=== PATIENT | male | born 1990 | race Caucasian/White ===

== ENCOUNTER 2023-08-02 17:51 | Emergency (ER) | payer OTHER, SELFPAY ==
--- OUTSIDE RECORDS SUMMARY | 2023-08-02 17:56 | XMS REPORT | Continuity of Care Document ---
:1990 Author Organization [facility] t Address [address] [facility] [address] [place] [id number] Care Team Providers Name Role Phone PCP, PATIENT DOES NOT HAVE A Primary Care Physician Unavaila GABRIELLA Collins Attending Clinician Unavailable Gabriella Farooq Attending Clinician GABRIELLA PRINCE Admitting Clinician Unavailable Problems This patient has no known problems. Allergies, Adverse Reactions, Alerts Allergy Allergy Status Severity Reaction(s) Onset Inactive Treating Comm ents Source Name Type Date Date Clinician NO KNOWN Drug Active Univers ALLERGIE Class ity of [facility] Social History Social Habit Start Date Stop Date Quantity Comments Source Sexual orientation [facility] Gender identity [facility] Sex Assigned At [birth year] [facility] 00:00:00 00:00:00 [facility] Smoking Status Start Date Stop Date Source Tobacco smoking consumption [facility] Medications Ordered Filled Start Stop Current Ordering Indication Dosage Frequency Signature Comments Components Source Medication Medication Date Date Medication? Clinician (SIG) Name Name ibuprofen 2022- No 600mg 600 mg, Uni vers (IBU) 04-12 Oral, ity of tablet 600 17:45: 18:03 ONCE, 1 [place] as mg 00 :00 dose, On Medical Mon Branch 04/12/23 at 1245, TREMAINE cephALEXin 2022- No [id number] 500mg Take 1 Univers 500 mg 04-12 [id number] capsule by ity of capsule 00:00: 04:59 mouth in [place] 00 :00 the Medical morning Branch and 1 capsule in the evening. Do all this for 7 days. Vital Signs Vital Name Observation Time Observation Value Comments Source Systolic blood 2023-04-12 17:26:00 148 mm[Hg] Univer sity of pressure [facility] Diastolic blood 2023-04-12 17:26:00 98 mm[Hg] Unive rsity of pressure [facility] Heart rate 2023-04-12 17:26:00 98 /min [facility] Body temperature 2023-04-12 17:26:00 36.72 Lauren [facility] Respiratory rate 2023-04-12 17:26:00 18 /min [facility] Body height 2023-04-12 17:26:00 172.7 cm [facility] Body weight 2023-04-12 17:26:00 77.111 kg [facility] BMI 2023-04-12 17:26:00 25.85 kg/m2 [facility] Oxygen saturation in 2023-04-12 17:26:00 100 /min [facility] blood by [facility] Pulse oximetry Branch Procedures Procedure Date / Time Performed Performing Clinician Sourc e XR SACRUM AND COCCYX 2023-04-12 18:28:48 Gabriella Prince [facility] ASSIGNMENT OF BENEFITS 2023-04-12 17:50:31 Doctor Unassigned, No [facility] NOTICE OF PRIVACY 2023-04-12 17:50:02 Doctor Unassigned, No [facility] Encounters Start End Encounter Admission Attending Care Care Encounter Source Date/Time Date/Time Type Type Clinicians Facility Department ID 2023-04-12 2023-04-12 Emergency X SURESH TXMADELINE ERT [id number] Univers 12:27:00 15:06:00 GABRIELLA rodarte [facility] 2023-04-12 2023-04-12 Emergency Suresh TXMADELINE [id number] Univers 12:27:00 15:06:00 Gabriella CAMERON [id number] itbonnie [facility] [id number] [facility] [id number] [facility] 084 Branch Results This patient has no known results.
[2023-08-02] MEDS ORDERED: ONDANSETRON 4 MG/2 ML VIAL ONE (18:35)
[2023-08-02] MEDS ORDERED: NA CHLORIDE 0.9% 1,000 ML ONE (18:35)
[2023-08-02 18:43] LABS: Absolute Lymphocytes (CBC) 2.3 K/uL (0.7-4.9); Hematocrit 47.4 % (39.6-49.0); Lymphocytes % 25.5 % (15.3-44.8); MCV 94.3 fL (80-100); MPV 7.8 fL (7.6-11.3); Platelets 353 thou/uL (152-406); RBC Red Blood Cell Count 5.02 M/uL (4.33-5.43)
[2023-08-02 18:56] LABS: Bilirubin Total 0.7 mg/dL (0.2-1.0); Potassium 4.1 mEq/L (3.5-5.1); Protein, Total 7.7 g/dL (6.4-8.2)
--- NOTE | 2023-08-02 19:31 | ER ---
Nurse's Notes [facility] Name: Mj Hough Age: 32 yrs Sex: Male : 1990 Arrival Date: 08/02/2023 Time: 17:51 Bed 2 Private MD: Diagnosis: Nausea with vomiting, unspecified;Diarrhea, unspecified Presentation: 08/02 18:04 Chief complaint: Patient states: vomiting, diarrhea, nausea X 2 days. Coronavirus iw screen: Client presents with at least one sign or symptom that may indicate coronavirus-19. Ebola Screen: Patient negative for fever greater than or equal to 101.5 degrees Fahrenheit, and additional compatible Ebola Virus Disease symptoms Patient denies exposure to infectious person. Patient denies travel to an Ebola-affected area in the 21 days before illness onset. No symptoms or risks identified at this time. Initial Sepsis Screen: Does the patient meet any 2 criteria? No. Patient's initial sepsis screen is negative. Does the patient have a suspected source of infection? No. Patient's initial sepsis screen is negative. Risk Assessment: Do you want to hurt yourself or someone else? Patient reports no desire to harm self or others. Onset of symptoms was July 31, 2023. 18:04 Method Of Arrival: Ambulatory iw 18:04 Acuity: TEODORO 4 iw 18:06 Acuity: TEODORO 3 iw Historical: - Allergies: 18:05 No Known Allergies; iw - Home Meds: 18:05 None [Active]; iw - PMHx: 18:05 None; iw - PSHx: 18:05 None; iw - Immunization history:: Client reports receiving the 2nd dose of the Covid vaccine. - Social history:: Smoking status: Patient denies any tobacco usage or history of. Screenin:28 [facility] ED Fall Risk Assessment (Adult) History of falling in the last 3 months, km8 including since admission No falls in past 3 months (0 pts) Confusion or Disorientation No (0 pts) Intoxicated or Sedated No (0 pts) Impaired Gait No (0 pts) Mobility Assist Device Used No (0 pt) Altered Elimination No (0 pt) Score/Fall Risk Level 0 - 2 = Low Risk Oriented to surroundings, Maintained a safe environment, Educated pt \T\ family on fall prevention, incl call for assistance when getting out of bed, Assessed \T\ reinforced patient's understanding of fall precautions. Abuse screen: Denies threats or abuse. Denies injuries from another. Nutritional screening: No deficits noted. Tuberculosis screening: No symptoms or risk factors identified. Assessment: 18:25 General: Appears in no apparent distress. Behavior is calm, cooperative, appropriate ll1 for age. Pain: Denies pain. GI: Reports cramping, diarrhea, nausea, vomiting. 19:28 General: Appears in no apparent distress. comfortable, Behavior is calm, cooperative, km8 appropriate for age. Pain: Denies pain. Neuro: Mejia Agitation-Sedation Scale (RASS): 0 - Alert and Calm Level of Consciousness is awake, alert, obeys commands, Oriented to person, place, time, situation. Cardiovascular: Denies chest pain, shortness of breath, Capillary refill < 3 seconds Patient's skin is warm and dry. Respiratory: Airway is patent Respiratory effort is even, unlabored, Respiratory pattern is regular, symmetrical. GI: Abdomen is flat, non-distended, no nausea at this time. : No signs and/or symptoms were reported regarding the genitourinary system. EENT: No signs and/or symptoms were reported regarding the EENT system. Derm: Skin is intact, is healthy with good turgor, Skin is dry, Skin is normal, Skin temperature is warm. Musculoskeletal: No signs and/or symptoms reported regarding the musculoskeletal system. Range of motion: intact in all extremities. Vital Signs: 18:05 BP 152 / 91; Pulse 95; Resp 16; Temp 98.9; Pulse Ox 98% on R/A; Weight 72.57 kg; Height iw 5 ft. 8 in. ; 19:28 BP 130 / 82; Pulse 93; Resp 16; Pulse Ox 99% on R/A; km8 20:05 BP 114 / 99; Pulse 90; Resp 18; Pulse Ox 100% ; jj7 18:05 Body Mass Index 24.33 (72.57 kg, 172.72 cm) iw [place] Coma Score: 19:28 Eye Response: spontaneous(4). Motor Response: obeys commands(6). Verbal Response: km8 oriented(5). Total: 15. ED Course: 17:55 Patient arrived in ED. mg5 17:56 [facility]C [facility] kb 17:56 Jovani Machuca MD is Attending Physician. kb 18:05 Triage completed. iw 18:05 Arm band placed on. iw 18:06 Noa Black, RN is Primary Nurse. iw 18:20 SARS-COV-2 RT PCR Sent. mb9 18:20 Flu Sent. mb9 18:27 Inserted saline lock: 20 gauge in right antecubital area, using aseptic technique. ls5 Blood collected. 19:28 Frances Rico, RN is Primary Nurse. km8 19:28 Patient has correct armband on for positive identification. Bed in low position. Call km8 light in reach. Side rails up X 1. Client placed on continuous cardiac and pulse oximetry monitoring. NIBP monitoring applied. Door closed. PO fluids given. 19:28 Patient maintains SpO2 saturation greater than 95% on room air. km8 20:05 Provided Education on: DISCHARGE INSTRUCTIONS. jj7 20:05 No provider procedures requiring assistance completed. IV discontinued, intact, jj7 bleeding controlled, No redness/swelling at site. Pressure dressing applied. Administered Medications: 18:25 Drug: NS 0.9% IV 1000 ml IV at 1 bolus Per protocol; 1000 mL bolus Route: IV; Rate: 1 ll1 bolus; Site: right antecubital; 20:04 Follow up: IV Status: Completed infusion jj7 18:25 Drug: Ondansetron IVP 4 mg IVP once; over 2 minutes Route: IVP; Site: right antecubital;ll1 19:30 Follow up: Response: No adverse reaction; Nausea is decreased km8 Medication: 20:05 VIS not applicable for this client. jj7 Outcome: 19:31 Discharge ordered by . kb 20:05 Discharged to home ambulatory, jj7 20:05 Condition: improved 20:05 Discharge instructions given to patient, Instructed on discharge instructions, medication usage, Demonstrated understanding of instructions, medications, Prescriptions given X 1, 20:08 Patient left the ED. jj7 Signatures: Courtney Hernandez, VERIFICATION REP-C VERIFICATION REP-Ckb Noa Black, RN REBEKAH iw Li Morejon RN RN ll1 Darin Murphy RN RN jj7 Debbie Amaral RN RN mb9 Quentin Torres ls5 Leela Benton mg5 Frances Rico, REBEKAH RN km8
--- NOTE | 2023-08-02 19:31 | EDPHYS ---
Physician Documentation [facility] Name: Mj Hough Age: 32 yrs Sex: Male : 1990 Arrival Date: 08/02/2023 Time: 17:51 Bed 2 Private MD: ED Physician Jovani Machuca HPI: 08/02 17:59 This 32 yrs old Male presents to ER via Unassigned with complaints of kb Nausea/Vomiting/Diarrhea, Lost Taste/Smell. 17:59 Patient is a 32-year-old male with no medical history who presents for 2 days of kb nausea, vomiting, diarrhea. States he lost his taste and smell today. Denies cough, congestion, fever, abdominal pain.. Historical: - Allergies: 18:05 No Known Allergies; iw - Home Meds: 18:05 None [Active]; iw - PMHx: 18:05 None; iw - PSHx: 18:05 None; iw - Immunization history:: Client reports receiving the 2nd dose of the Covid vaccine. - Social history:: Smoking status: Patient denies any tobacco usage or history of. ROS: 18:00 Constitutional: Negative for fever, chills, and weight loss, kb 18:00 ENT: Positive for loss of taste and smell, 18:00 Abdomen/GI: Positive for nausea, vomiting, and diarrhea, Negative for abdominal pain, 18:00 All other systems are negative, Exam: 18:00 Constitutional: This is a well developed, well nourished patient who is awake, alert, kb and in no acute distress. Head/Face: Normocephalic, atraumatic. ENT: Moist Mucous membranes Cardiovascular: Regular rate Respiratory: Respirations even and unlabored. No increased work of breathing. Talking in full sentences Abdomen/GI: Soft, non-tender. No distention Skin: Warm, dry with normal turgor. Normal color. MS/ Extremity: Pulses equal, no cyanosis. Neurovascular intact. Full, normal range of motion. Neuro: Awake and alert, GCS 15, oriented to person, place, time, and situation. Moves all extremities. Normal gait. Vital Signs: 18:05 BP 152 / 91; Pulse 95; Resp 16; Temp 98.9; Pulse Ox 98% on R/A; Weight 72.57 kg; Height iw 5 ft. 8 in. ; 19:28 BP 130 / 82; Pulse 93; Resp 16; Pulse Ox 99% on R/A; km8 20:05 BP 114 / 99; Pulse 90; Resp 18; Pulse Ox 100% ; jj7 18:05 Body Mass Index 24.33 (72.57 kg, 172.72 cm) [place] Coma Score: 19:28 Eye Response: spontaneous(4). Motor Response: obeys commands(6). Verbal Response: km8 oriented(5). Total: 15. MDM: 17:56 Patient medically screened. kb 18:00 Differential diagnosis: Nonspecific abd pain, viral gastroenteritis, flu, covid. Data kb reviewed: vital signs, nurses notes. 19:30 Test considered but Not performed: CT: CT abd considered, but abd soft and nontender, kb labs wnl. Counseling: I had a detailed discussion with the patient and/or guardian regarding the historical points, exam findings, and any diagnostic results supporting the discharge/admit diagnosis, lab results, the need for outpatient follow up, a family practitioner, to return to the emergency department if symptoms worsen or persist or if there are any questions or concerns that arise at home. 08/02 17:58 Order name: Flu; Complete Time: 19:12 08/02 17:58 Order name: SARS-COV-2 RT PCR; Complete Time: 19:12 08/02 17:58 Order name: CBC with Diff; Complete Time: 19:00 08/02 17:58 Order name: CMP; Complete Time: 19:00 08/02 17:58 Order name: Lipase; Complete Time: 19:00 08/02 17:59 Order name: IV Saline Lock; Complete Time: 18:19 08/02 17:59 Order name: Labs collected and sent; Complete Time: 18:19 08/02 19:30 Order name: PO challenge; Complete Time: 19:30 kb Administered Medications: 18:25 Drug: NS 0.9% IV 1000 ml IV at 1 bolus Per protocol; 1000 mL bolus Route: IV; Rate: 1 ll1 bolus; Site: right antecubital; 20:04 Follow up: IV Status: Completed infusion jj7 18:25 Drug: Ondansetron IVP 4 mg IVP once; over 2 minutes Route: IVP; Site: right antecubital;ll1 19:30 Follow up: Response: No adverse reaction; Nausea is decreased km8 Disposition Summary: 08/02/23 19:31 Discharge Ordered Notes: Location: Home kb Condition: Stable kb Diagnosis - Nausea with vomiting, unspecified kb - Diarrhea, unspecified kb Followup: kb - With: Emergency Department - When: As needed - Reason: Worsening of condition Followup: kb - With: Private Physician - When: 2 - 3 days - Reason: Recheck today's complaints, Continuance of care, Re-evaluation by your physician Discharge Instructions: - Discharge Summary Sheet kb - Viral Gastroenteritis, Adult, [id number]-ae-[id number] kb Forms: - Work release form kb - Medication Reconciliation Form kb - Thank You Letter kb - Antibiotic Education kb - Prescription Opioid Use kb - Patient Portal Instructions kb - Leadership Thank You Letter kb Prescriptions: - ondansetron 4 mg Oral Tablet,disintegrating - take 1 tablet ORAL route every 6 hours As needed; 12 tablet; Refills: 0, kb Product Selection Permitted Addendum: 08/07/2023 07:55 I was immediately available for consultation during this patient's visit. I did not e c2 personally see the patient or guide the patient's care. . Signatures: Dispatcher [employer] Courtney Blakely, TOE SEWER-C TOE SEWER-Noa Meraz, RN REBEKAH iw Li Morejon RN RN ll1 Jovani Machuca MD MD ec2 Darin Murphy RN jj7 Frances Rico RN km8
[2023-08-02 20:33] VITALS: TEMP 98.9
[2023-08-02 20:38] VITALS: BP 114/99; O2SAT 100
== END 2023-08-02 20:08 | disposition home or self-care (01) ==
LOC: ER 17:51
DX: R11.2 Nausea with vomiting, unspecified (principal); R19.7 Diarrhea, unspecified; Z11.52 Encounter for screening for COVID-19
CPT/HCPCS: 36415; 80053; 83690; 85025; 87635; 87804; 96361; 96374; 99285; J2405; J7030

== ENCOUNTER → 2023-10-19 | Emergency (ER) | payer SELFPAY ==
[~2023-10-19] MED LIST: CEFTRIAXONE 1000 MG/VIAL ONE; KETOROLAC 30 MG/ML INJ ONE; ONDANSETRON 4 MG (ODT) TAB ONE; WATER FOR INJ,STERILE 10 ML ONE; predniSONE 10 MG TAB ONE
--- OUTSIDE RECORDS SUMMARY | 2023-10-19 02:43 | XMS REPORT | Continuity of Care Document ---
Author Name Unknown Address [address] [facility] [address]. [address] [place] [address] [facility] thconnect Address [address] [facility]. [address] [place] [address] Care Team Providers Care Endband Sizer Name Role Phone PCP, PATIENT DOES NOT HAVE A Primary Care Physic gregg Unavailable EDILBERTO HOUGH Attending Clinician Unavailable Edilberto Hough DO Attending Clinician [phone] GABRIELLA PRINCE Attending Clinician Unavailab le Gabriella Farooq Attending Clinician GABRIELLA PRINCE Admitting Clinician Unavailab le Allergies, Adverse Reactions, Alerts Allergy Name Allergy Type Status Severity Reaction(s) Onset Date Inactive Date Treating Clinician Comments Source NO KNOWN ALLERGIE S Drug Class Active [facility] Social History Social Habit Start Date Stop Date Quantity Comments [facility] Sex Assigned At 1990 00:00:00 1990 00:00:00 [facility] Smoking Status Start Date Stop Date Source Tobacco smoking consumption unknown [facility] Medications Ordered Medication Name Filled Medication Name Start Date Stop Date Current Medication? Ordering Clinician Indication Dosage Frequency Signature (SIG) Comments Components Source dexamethaso ne sod phos PF injection 10 mg 10-17 03:45: 00 10-17 02:56 :00 No 10mg 10 mg, Oral, ONCE, 1 dose, On 10/16/23 at 2145, 1 mL [facility] ibuprofen (IBU) tablet 600 mg 04-12 17:45: 00 04-12 18:03 :00 No 600mg 600 mg, Oral, ONCE, 1 dose, On Wed04/12/23 at 1245, TREMAINE [facility] cephALEXin 500 mg capsule 04-12 00:00: 00 04-20 04:59 :00 No [id number] 500mg Take 1 capsule by mouth in the morning and 1 capsule in the evening. Do all this for 7 days. [facility] Immunizations Ordered Immunization Name Filled Immunization Name Date Status Comments Source TD Pres-Free 2023-04-12 00:00:00 Completed [facility] TD Pres-Free Unknown Completed [facility] Vital Signs Vital Name Observation Time Observation Value Comments S ource Systolic blood pressure 2023-10-17 02:46:00 127 mm[Hg] [facility] Diastolic blood pressure 2023-10-17 02:46:00 85 mm[Hg] [facility] Heart rate 2023-10-17 02:46:00 115 /min [facility] Body temperature 2023-10-17 02:46:00 36.5 Lauren [facility] Respiratory rate 2023-10-17 02:46:00 18 /min [facility] Body height 2023-10-17 02:46:00 172.7 cm [facility] Body weight 2023-10-17 02:46:00 72.576 kg [facility] BMI 2023-10-17 02:46:00 24.33 kg/m2 [facility] Oxygen saturation in Arterial blood by Pulse oximetry 2023-10-17 02:46:00 99 /min [facility] Systolic blood pressure 2023-04-12 17:26:00 148 mm[Hg] [facility] Diastolic blood pressure 2023-04-12 17:26:00 98 mm[Hg] [facility] Heart rate 2023-04-12 17:26:00 98 /min [facility] Body temperature 2023-04-12 17:26:00 36.72 Lauren [facility] Respiratory rate 2023-04-12 17:26:00 18 /min [facility] Body height 2023-04-12 17:26:00 172.7 cm [facility] Body weight 2023-04-12 17:26:00 77.111 kg [facility] BMI 2023-04-12 17:26:00 25.85 kg/m2 [facility] Oxygen saturation in Arterial blood by Pulse oximetry 2023-04-12 17:26:00 100 /min [place] [facility] Procedures Procedure Date / Time Performed Performing Clinicia n Source ASSIGNMENT OF BENEFITS 2023-10-17 03:01:15 Docto r Unassigned, [place] [facility] NOTICE OF PRIVACY PRACTICES 2023-10-17 02:41:56 Doctor Unassigned, [place] [facility] CONSENT/REFUSAL FOR DIAGNOSIS AND TREATMENT 2023-10-17 02:41:37 Doctor Unassigned, [place] [facility] XR SACRUM AND COCCYX 2023-04-12 18:28:48 Armida Prince [facility] ASSIGNMENT OF BENEFITS 2023-04-12 17:50:31 Docto r Unassigned, [place] [facility] NOTICE OF PRIVACY PRACTICES 2023-04-12 17:50:02 Doctor Unassigned, [place] [facility] Encounters Start Date/Time End Date/Time Encounter Type Admission Type Attending [facility] Care Facility Care Department Encounter ID Source 2023-10-16 20:50:00 2023-10-16 21:19:00 Emergency X EDILBERTO HOUGH [facility] ERT [id number] [facility] 2023-10-16 20:50:00 2023-10-16 21:19:00 Emergency Edilberto Hough [facility] [id number] [facility] 2023-04-12 12:27:00 2023-04-12 15:06:00 Emergency X GABRIELLA PRINCE [facility] ERT [id number] [facility] 2023-04-12 12:27:2023-04-12 15:06:00 Emergency Gabriella Prince [facility] [id number] [id number] [facility] Notes Date/Time Note Provider Source 2023-10-16 21:00:23 [id number]+[id number] It8R9fttup3mRd 3ovHbe9KgMo/thu1Ri2mswKKfHNwMf3579 -01-20T21:00:23 Awake, alert oriented X4, respiratory even and unlabored,skin w/d color appropriate for race, moves all ext well, pt encouraged to follow up with pcp and or return as neededPt given printed and verbal discharge instructions regarding Laryngitis , patient verbralized understanding and signature obtained, patient denies any other concerns.Advised to seek medical attention for new/prolonged/worsening of symptoms,No adverse reaction to meds given in ER noted upon dischargePt ambulated to the lobby with steady gait 67190-7Nkdpnyxue department WxarBN5579-46-12S19:00:37Emergen department [id number] .2.322911|[id number] for patient oqxv01659-3DvbeGNOHCECYTYVKpzqeevr d C-CDA narrative text[address] Zi[id number] 68NLRHKPLTVBTIWNYWUASWNW8732-86-42 T21:00:371.2.840.539177.1.72.3.15| 1.2.840.405771.1.13.104.2.7.2.7278 [id number] [facility] 2023-10-16 20:45:50 z0aKkkn5UQD3RKSoRy0B y6fsYM5uKez+tu gZ+SYntGWE86vgVycX3xN/LibTt3QT1650 -01-20T20:45:50 Sore throat X 4 days. 58334-5Kxjuvlqqt department Triage varrMC6356-09-76L01:46:06[facility] Triage noteTXT1.2.840.450994.1.13.104.2.7 .[id number] for patient aukh47035-4Vwhgstqwp department NoteLNNARRATIVEFormatted C-CDA narrative [id number] J Hoot RN[address] Yp[id number] 76BSILYJQIGEKPUVJGGHSFOR0790-61-33 T20:46:061.2.840.250388.1.72.3.15| 1.2.840.578909.1.13.104.2.7.2.7278 [id number] Candy Menendez RN [facility]"
--- NOTE | 2023-10-19 03:05 | EDPHYS ---
Physician Documentation [facility] Name: Mj Hough Age: 33 yrs Sex: Male : 1990 Arrival Date: 10/19/2023 Time: 02:41 Bed 10 Private MD: ED Physician Tomas Vazquez HPI: 10/19 02:53 This 33 yrs old Male presents to ER via Unassigned with complaints of Sore sp4 Throat. 03:01 3-year-old male presents with 2 days of cough fever sore throat and hoarseness loss of sp4 voice. cough is non productive. . Historical: - Allergies: 02:56 No Known Allergies; pf1 - PMHx: 02:56 None; pf1 - PSHx: 02:56 None; pf1 - Immunization history:: Adult Immunizations up to date, Client reports receiving the 2nd dose of the Covid vaccine, Moderna Last tetanus immunization: < 5 years ago Flu vaccine is not up to date. - Social history:: Smoking status: Patient denies any tobacco usage or history of. Patient/guardian denies using alcohol, street drugs. - Family history:: not pertinent. ROS: 03:01 Constitutional: Negative for fever, chills, and weight loss, positive cough, positive sp4 sore throat, positive hoarseness, 03:01 All other systems are negative, Exam: 03:01 Constitutional: This is a well developed, well nourished patient who is awake, alert, sp4 and in no acute distress. Head/Face: Normocephalic, atraumatic. Eyes: Pupils equal round and reactive to light, extra-ocular motions intact. Lids and lashes normal. Conjunctiva and sclera are not injected. Cornea within normal limits. Periorbital areas with no swelling, redness, or edema. ENT: Nares patent. No nasal discharge, no septal abnormalities noted. Positive voice hoarseness. Tympanic membranes are normal and external auditory canals are clear. Oropharynx positive for redness and exudates, Negative for swelling, or masses, or evidence of obstruction, uvula midline. Mucous membranes moist. Neck: Trachea midline, no thyromegaly or masses palpated, and no cervical lymphadenopathy. Supple, full range of motion without nuchal rigidity, or vertebral point tenderness. Chest/axilla: Normal chest wall appearance and motion. Nontender with no deformity. No lesions are appreciated. Cardiovascular: Regular rate and rhythm with a normal S1 and S2. No gallops, murmurs, or rubs. Normal PMI, no JVD. No pulse deficits. Respiratory: Lungs have equal breath sounds bilaterally, clear to auscultation and percussion. No rales, rhonchi or wheezes noted. No increased work of breathing, no retractions or nasal flaring. Abdomen/GI: Soft, non-tender, with normal bowel sounds. No distension or tympany. No guarding or rebound. No evidence of tenderness throughout. Back: No spinal tenderness. No costovertebral tenderness. There is sacral decubitus ulcer that is covered by the wound VAC. Skin: Warm, dry with normal turgor. Normal color with no rashes, no lesions, and no evidence of cellulitis. MS/ Extremity: Pulses equal, no cyanosis. Neurovascular intact. Full, normal range of motion. Neuro: Awake and alert, GCS 15, oriented to person, place, time, and situation. Cranial nerves II-XII grossly intact. Motor strength 5/5 in all extremities. Sensory grossly intact. Psych: Awake, alert, with orientation to person, place and time. Behavior, mood, and affect are within normal limits Vital Signs: 02:54 BP 130 / 90; Pulse 92; Resp 18; Temp 98.2; Pulse Ox 100% on R/A; Weight 72.57 kg; pf1 Height 5 ft. 8 in. ; Pain 9/10; 02:54 Body Mass Index 24.33 (72.57 kg, 172.72 cm) pf1 02:54 Pain Scale: Adult pf1 MDM: 03:00 Patient medically screened. sp4 03:01 Differential diagnosis: gingivostomatitis, laryngitis, mononucleosis, peritonsillar sp4 abscess pharyngitis. Data reviewed: vital signs, nurses notes, old medical records. Consideration of Admission/Observation Escalation of care including admission/observation considered. ED course: Patient has improved after the medications. Stable for discharge home. Will prescribe Zithromax, ibuprofen, dextromethorphan, Phenergan.. . Administered Medications: 03:08 CANCELLED (Patient Refused): acetaminophen-codeine(300 mg-30 mg) 2 tabs PO once; RASS pf1 on ADMIN: Combtv4, Very Agttd3, Agttd2, Rstlss1, AlertClm0, Drwsy-1, Lt Sdtn-2, Mod Sdtn-3, Dp Sdtn-4, UnArsble-5 03:12 Drug: Ondansetron PO 4 mg PO once Route: PO; pf1 03:45 Follow up: Response: No adverse reaction; Marked relief of symptoms; Nausea is decreasedpf1 03:15 Drug: predniSONE PO 60 mg PO once Route: PO; pf1 03:45 Follow up: Response: No adverse reaction; Marked relief of symptoms pf1 03:20 Drug: Ketorolac IM 60 mg IM once Route: IM; Site: left gluteus; pf1 03:45 Follow up: Response: No adverse reaction; Marked relief of symptoms; Pain is decreased pf1 03:25 Drug: Rocephin (cefTRIAXone) IM 1 grams IM once Route: IM; Site: right gluteus; pf1 03:45 Follow up: Response: No adverse reaction pf1 Disposition Summary: 10/19/23 03:04 Discharge Ordered Problem: new sp4 Symptoms: have improved sp4 Condition: Stable sp4 Diagnosis - Acute laryngitis sp4 - Acute bronchitis, unspecified sp4 Followup: sp4 - With: Private Physician - When: 7 - 10 days - Reason: Recheck today's complaints Discharge Instructions: - Discharge Summary Sheet sp4 - Laryngitis sp4 Forms: - Patient Portal Instructions sp4 Prescriptions: - dextromethorphan-guaifenesin 20-400 mg Oral tablet - take 1 tablet ORAL route every 6 hours PRN cough; 60 tablet; Refills: 0, sp4 Product Selection Permitted - Ibuprofen 800 mg Oral Tablet - take 1 tablet ORAL route every 8 hours As needed take with food; 30 tablet; sp4 Refills: 0, Product Selection Permitted - Zithromax Z-Jesus 250 mg Oral Tablet - take 1 tablet ORAL route as directed for 5 days Day 1 - take two (2) tablets sp4 one time. Day 2, 3, 4 , 5 take one (1) tablet once daily.; 6 tablet; Refills: 0, Product Selection Permitted - promethazine 25 mg Oral Tablet - take 1 tablet ORAL route every 6 hours As needed; 20 tablet; Refills: 0, sp4 Product Selection Permitted Signatures: Dulce Maria Villarreal, RN RN pf1 PotepTomas busby MD MD sp4 Corrections: (The following items were deleted from the chart) 03:08 03:00 Acetaminophen-Codeine PO (300 mg-30 mg) 2 tabs PO once; RASS on ADMIN: Combtv4, pf1 Very Agttd3, Agttd2, Rstlss1, AlertClm0, Drwsy-1, Lt Sdtn-2, Mod Sdtn-3, Dp Sdtn-4, UnArsble-5 ordered. sp4
--- NOTE | 2023-10-19 03:05 | ER ---
Nurse's Notes [facility] Name: Mj Hough Age: 33 yrs Sex: Male : 1990 Arrival Date: 10/19/2023 Time: 02:41 Bed 10 Private MD: Diagnosis: Acute laryngitis;Acute bronchitis, unspecified Presentation: 10/19 02:54 Chief complaint: Patient states: sore throat pain of 9,onset 5-6 days with hoarseness pf1 and cough,onset 2 days. Coronavirus screen: Vaccine status: Patient reports receiving the 2nd dose of the covid vaccine. Client denies travel out of the [place] in the last 14 days. Client presents with at least one sign or symptom that may indicate coronavirus-19. Ebola Screen: Patient negative for fever greater than or equal to 101.5 degrees Fahrenheit, and additional compatible Ebola Virus Disease symptoms. Initial Sepsis Screen: Does the patient meet any 2 criteria? HR > 90 bpm. No. Patient's initial sepsis screen is negative. Does the patient have a suspected source of infection? No. Patient's initial sepsis screen is negative. Risk Assessment: Do you want to hurt yourself or someone else? Patient reports no desire to harm self or others. 02:54 Method Of Arrival: Ambulatory pf1 02:54 Acuity: TEODORO 4 pf1 Historical: - Allergies: 02:56 No Known Allergies; pf1 - PMHx: 02:56 None; pf1 - PSHx: 02:56 None; pf1 - Immunization history:: Adult Immunizations up to date, Client reports receiving the 2nd dose of the Covid vaccine, Moderna Last tetanus immunization: < 5 years ago Flu vaccine is not up to date. - Social history:: Smoking status: Patient denies any tobacco usage or history of. Patient/guardian denies using alcohol, street drugs. - Family history:: not pertinent. Screenin:03 [facility] ED Fall Risk Assessment (Adult) History of falling in the last 3 months, pf1 including since admission No falls in past 3 months (0 pts) Confusion or Disorientation No (0 pts) Intoxicated or Sedated No (0 pts) Impaired Gait No (0 pts) Mobility Assist Device Used No (0 pt) Altered Elimination No (0 pt) Score/Fall Risk Level 0 - 2 = Low Risk Oriented to surroundings, Maintained a safe environment, Educated pt \T\ family on fall prevention, incl call for assistance when getting out of bed, Assessed \T\ reinforced patient's understanding of fall precautions, Provided non-skid footwear, Hourly rounding (assess needs \T\ fall precautionary measures) done, Used ambulatory aids as needed (educated on \T\ assisted with), Used gait belt as appropriate. Abuse screen: Denies threats or abuse. Nutritional screening: No deficits noted. Tuberculosis screening: No symptoms or risk factors identified. Assessment: 02:57 General: Appears in no apparent distress. comfortable, well groomed, well developed, pf1 Behavior is calm, cooperative, appropriate for age, quiet. Pain: Complains of pain in throat Pain at worst was 9 out of 10 on a pain scale. Neuro: No deficits noted. Level of Consciousness is awake, alert, obeys commands, Oriented to person, place, time, situation. Cardiovascular: No deficits noted. Capillary refill < 3 seconds Patient's skin is warm and dry. Respiratory: Airway is patent Respiratory effort is even, unlabored, Respiratory pattern is regular, symmetrical. Respiratory: Reports cough that is Breath sounds are clear bilaterally. GI: No deficits noted. Abdomen is flat, non-distended. : No deficits noted. No signs and/or symptoms were reported regarding the genitourinary system. EENT: Reports pain in throat. Vital Signs: 02:54 BP 130 / 90; Pulse 92; Resp 18; Temp 98.2; Pulse Ox 100% on R/A; Weight 72.57 kg; pf1 Height 5 ft. 8 in. ; Pain 9/10; 02:54 Body Mass Index 24.33 (72.57 kg, 172.72 cm) pf1 02:54 Pain Scale: Adult pf1 ED Course: 02:42 Patient arrived in ED. [id number] 02:53 Tomas Vazquez MD is Attending Physician. sp4 02:53 Dulce Maria Villarreal, REBEKAH is Primary Nurse. pf1 02:54 Patient has correct armband on for positive identification. Bed in low position. Call pf1 light in reach. 02:54 Arm band placed on right wrist. pf1 02:56 Triage completed. pf1 03:04 No provider procedures requiring assistance completed. Patient did not have IV access pf1 during this emergency room visit. 03:45 Provided Education on: prescriptions and follow up. pf1 Administered Medications: 03:08 CANCELLED (Patient Refused): acetaminophen-codeine(300 mg-30 mg) 2 tabs PO once; RASS pf1 on ADMIN: Combtv4, Very Agttd3, Agttd2, Rstlss1, AlertClm0, Drwsy-1, Lt Sdtn-2, Mod Sdtn-3, Dp Sdtn-4, UnArsble-5 03:12 Drug: Ondansetron PO 4 mg PO once Route: PO; pf1 03:45 Follow up: Response: No adverse reaction; Marked relief of symptoms; Nausea is decreasedpf1 03:15 Drug: predniSONE PO 60 mg PO once Route: PO; pf1 03:45 Follow up: Response: No adverse reaction; Marked relief of symptoms pf1 03:20 Drug: Ketorolac IM 60 mg IM once Route: IM; Site: left gluteus; pf1 03:45 Follow up: Response: No adverse reaction; Marked relief of symptoms; Pain is decreased pf1 03:25 Drug: Rocephin (cefTRIAXone) IM 1 grams IM once Route: IM; Site: right gluteus; pf1 03:45 Follow up: Response: No adverse reaction pf1 Medication: 03:45 VIS not applicable for this client. pf1 Outcome: 03:04 Discharge ordered by . sp4 03:45 Discharged to home ambulatory, pf1 03:45 Condition: improved 03:45 Discharge instructions given to patient, Instructed on discharge instructions, follow up and referral plans. Demonstrated understanding of instructions, follow-up care, medications, Prescriptions given X 4, 04:09 Patient left the ED. pf1 Signatures: Alis Soria6 Dulce Maria Villarreal, REBEKAH RN pf1 Tomas Vazquez MD MD sp4
[2023-10-19 09:01] VITALS: BP 130/90; TEMP 98.2; O2SAT 100
== END ==
LOC: ER 02:41
DX: J04.0 Acute laryngitis (principal); J20.9 Acute bronchitis, unspecified
CPT/HCPCS: 96372; 99284; J0696; J7512; Q0162